=== PATIENT | female | born 1995 | race Caucasian/White ===

== ENCOUNTER 2020-02-03 02:27 | Inpatient (IN) | payer MEDICAID ==
[~2020-02-03] VITALS: Ht 167.6 cm; Wt 80.9 kg
[2020-02-03] VITALS (17 sets, daily range): BP systolic 98–125; BP diastolic 52–79; PULSE 60–100; TEMP 97.6–98.9
--- NOTE | 2020-02-03 02:30 | NUR ---
G3L1 at 40.6 weeks gestation to LDR3 with c/o contractions since 0100. She denies bleeding but c/o some leaking of fluid for the last few days. She reports good movement. Patient changed into gown and wedged to left side in bed. EFMs explained and applied. FHR 120bpm and reactive. Regular CTX per toco, patient breathing through them. VSS. SVE 5/90 with bulgy bag felt. Amniotrace to vagina remains yellow. No fluid noted with exam. Plan of care reviewed with patient and boyfriend.
[2020-02-03 02:58] LABS: BASO % 0.3 % (0.0-2.0); EOS # 0.2 (0.0-0.7); EOS % 1.3 % (0-4.0); GRAN # 8.6 (1.4-6.5); GRAN % 75.9 % (42.2-75.2); HEMATOCRIT 33.8 % (37.0-47.0); HEMOGLOBIN 11.1 g/dl (12.5-16.0); LYMPH # 1.7 (1.2-3.4); MEAN CELL VOLUME 92 fl (80.0-100.0); MEAN CORPUSCULAR HEMOGLOBIN 30 pg (27.0-31.0); MEAN CORPUSCULAR HGB CONC 33 g/dl (33.0-37.0); MONO # 0.8 (0.1-0.6); MONO % 6.8 % (1.7-9.3); PLATELET COUNT 180 K/mm3 (130-400); RED BLOOD COUNT 3.68 M/mm3 (4.10-5.30); REDCELL DISTRIBUTION WIDTH-CV 13.5 % (11.5-14.5)
--- NOTE | 2020-02-03 04:00 | NUR ---
FHT's w early deceleration to 80's with peak of contraction, gradual return to baseline.
--- NOTE | 2020-02-03 04:40 | NUR ---
Charlette FARM BOSS into room for epidural. Pt moved to sit @ adge of bed for epidural placement.EFM tracing maternal pulse.
--- NOTE | 2020-02-03 05:25 | NUR ---
SVE complete. Pt 'feeling pressure'. Dr Yusuf at L&D desk, notified to come into room. Pushing instructions given. 0530 Set up and prepped for delivery [address] infant by Dr Yusuf.
--- NOTE | 2020-02-03 05:46 | NUR ---
Placenta delivers spont and intact. Pitocin bolus started. Perineal inspection reveals no laceration, pericare completed., bed together
[2020-02-03] MEDS ORDERED: CELEXA40 MG PO (06:21)
[2020-02-03] MEDS ORDERED: ZYRTEC 10MG10 MG PO (06:22)
[2020-02-03 07:43] LABS: TRICYCLIC ANTIDEPRESS URINE NEGATIVE
--- NOTE | 2020-02-03 08:02 | NUR ---
COVID-19 swab collected by Shannon Yates RN and sent to lab per protocol.
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
--- NOTE | 2020-02-03 15:05 | NUR ---
Patient requesting to go outside and smoke. RN explains that patient needs to stay on unit, especially with IV site in place. Patient does not want to get INT taken out at this time "in case I need it again later". RN explains that especially with current COVID policies patient needs to remain on unit and FOB needs to restrict leaving to necessary trips only. After discussion, both mother and FOB verbalize understanding.
[2020-02-04 00:15] VITALS: BP 112/63; PULSE 73; TEMP 98.3
[2020-02-04 04:30] VITALS: BP 112/59; PULSE 68; TEMP 98.3
[2020-02-04 08:30] VITALS: BP 103/57; PULSE 74; TEMP 97.8
--- NOTE | 2020-02-04 08:50 | NUR ---
Initial visit; Parents thanked Trial Paralegal for offering congratulations and God's blessings for the of their son. Trial Paralegal thanked family for choosing [facility].
[2020-02-04] MEDS ORDERED: IBU600 MG PO (09:01)
--- NOTE | 2020-02-04 11:30 | NUR ---
1120 PT DC'D FROM UNIT AT THIS TIME WITH FOB AND . DC INSTRUCTIONS GIVEN. IBUPROFEN PERSCRIPTION SENT TO PHARMACY ON FILE. ALL QUESTIONS ANSWERED AT THIS TIME. THIS RN WALKED PATIENT TO VEHICLE AND WITNESSED INFANT BUCKLED INTO VEHICLE FACING BACKWARDS.
== END 2020-02-04 11:20 | disposition home or self-care (01) | DRG 807 ==
LOC: LDRO 02:27 → OB 02:38 → LDR 02:38 → OB 09:18
PROVIDERS: Obstetrics & Gynecology; ADMIT Obstetrics & Gynecology
PROC: 10E0XZZ Delivery of Products of Conception, External Approach (ICD-10-PCS; principal; 2020-02-03)
PROC: 10907ZC Drainage of Amniotic Fluid, Therapeutic from Products of Conception, Via Natural or Artificial Opening (ICD-10-PCS; 2020-02-03)
DX: O48.0 Post-term pregnancy (principal); Z37.0 Single live birth; O77.0 Labor and delivery complicated by meconium in amniotic fluid; Z3A.40 40 weeks gestation of pregnancy
CPT/HCPCS: J2590; J2795; J7120

== ENCOUNTER 2021-01-15 12:40 | Outpatient (CLI) | payer MEDICAID ==
[~2021-01-15 12:40] MED LIST: CELEXA40 MG PO; IBU600 MG PO; ZYRTEC 10MG10 MG PO
--- NOTE | 2021-01-15 13:00 | NUR ---
Pt arrived on unit ambulatory and with complaints of abdominal pain but "not sure if they are contractions" all day. Pt denies any leaking of fluid, vaginal bleeding and reports normal movement. Pt reports no care. Self reports G4L1 with delivery 1 year ago and boy of head trauma at 5 weeks of age. This was unplanned and "too many emotions to process the ". EFM and toco monitors started. Vital signs WNL. Spoke with Dr. Issa and Dr. Casarez. See physician notification for details.
[2021-01-15 14:00] VITALS: BP 116/56; PULSE 96; TEMP 98
[2021-01-15 14:47] LABS: ALBUMIN 3.1 gm/dL (3.5-5.0); BILIRUBIN,TOTAL 0.2 mg/dL (0.0-1.0); CALCIUM 8.3 mg/dL (8.4-10.2); CREATININE, serum 0.45 (0.52-1.25); MEAN CELL VOLUME 92 fl (80.0-100.0); MEAN CORPUSCULAR HGB CONC 33 g/dl (33.0-37.0); MEAN PLATELET VOLUME 10.2 fl (7.4-10.4); PLATELET COUNT 217 K/mm3 (130-400); POTASSIUM 3.7 mmol/L (3.4-5.0); RED BLOOD COUNT 3.13 M/mm3 (4.10-5.30); REDCELL DISTRIBUTION WIDTH-CV 13.3 % (11.5-14.5); TOTAL PROTEIN 6.3 gm/dL (6.4-8.2)
[2021-01-15 14:52] LABS: HEMATOCRIT 28.7 % (37.0-47.0); HEMOGLOBIN 9.4 g/dl (12.5-16.0); MEAN CORPUSCULAR HEMOGLOBIN 30 pg (27.0-31.0)
[2021-01-15 15:00] VITALS: BP 100/59; PULSE 99
[2021-01-15 15:19] LABS: THYROID STIMULATING HORMONE 1.62 uIU/mL (0.465-4.680)
[2021-01-15 15:23] LABS: TRICYCLIC ANTIDEPRESS URINE NEGATIVE
[2021-01-15 17:08] LABS: EOSINOPHIL 4 % (0-4); LYMPHOCYTE 19 % (20.0-51.0); NEUTROPHILS 72 % (42.0-75.2)
[2021-01-15 17:10] LABS: HYPOCHROMIA 1+; PLATELET ESTIMATE NORMAL (NORMAL)
[2021-01-16 07:01] LABS: PT G20210A MUTATION B Negative (Negative)
[2021-01-16 13:11] LABS: LUPUS ANTICOAGULANT PT 12.8 Seconds (())
[2021-01-17 01:30] LABS: BETA-2 GPI IGG AABS <20.0 CU (<=20.0); BETA-2 GPI IGM AABS <20.0 CU (<=20.0)
[2021-01-17 07:38] LABS: TOXOPLASMA AB, IGG <3.0 IU/mL (0.0-7.1); TOXOPLASMA IGG VALUE Negative (Negative); TOXOPLASMA IGM VALUE Negative (Negative)
== END 2021-01-15 15:45 | disposition home or self-care (01) ==
LOC: LDRO 12:40
PROVIDERS: Obstetrics & Gynecology
DX: O26.893 Other specified pregnancy related conditions, third trimester (principal); R10.9 Unspecified abdominal pain; Z3A.00 Weeks of gestation of pregnancy not specified

== ENCOUNTER 2021-02-28 07:38 | Inpatient (IN) | payer MEDICAID ==
[2021-02-28] VITALS (39 sets, daily range): BP systolic 99–143; BP diastolic 56–86; PULSE 57–100; TEMP 97.1–98.6
[~2021-02-28] VITALS: Ht 167.6 cm; Wt 72.7 kg
--- NOTE | 2021-02-28 07:45 | NUR ---
0745-G4L1 Patient of Dr. Casarez ambulatory to LR 4 with complaint of SROM at 0715 clear fluid. Patient reports EDC 03/20/21 and has had little to no care. Admitted to meth use in the last week and history of demise at 5wks while child in previous boyfriends care. Patient reports she is no longer with him but he is FOB of both her son who and this current . Assisted into gown obtained UDS per protocol and placed on EFM. VSS. Amnitest +. SVE /-[address] Yusuf notified. Orders to admit and start Pen G per GBS unknown protocol.
--- NOTE | 2021-02-28 08:15 | NUR ---
0815IV to right hand, blood collected and LR infusing per orders. See EMAR. Patient reports to covid + result 02/19/2021 in ED. Unable to locate + result. Rapid result sent down with positive results found. Placed in isolation for covid per protocol. Assessment complet, consents signed.
[2021-02-28 08:28] LABS: MEAN CELL VOLUME 87 fl (80.0-100.0); MEAN CORPUSCULAR HEMOGLOBIN 29 pg (27.0-31.0); MEAN CORPUSCULAR HGB CONC 33 g/dl (33.0-37.0); MEAN PLATELET VOLUME 11.1 fl (7.4-10.4); PLATELET COUNT 183 K/mm3 (130-400); RED BLOOD COUNT 3.51 M/mm3 (4.10-5.30); REDCELL DISTRIBUTION WIDTH-CV 14.2 % (11.5-14.5)
[2021-02-28 08:36] LABS: HEMATOCRIT 30.5 % (37.0-47.0)
[2021-02-28 08:47] LABS: TRICYCLIC ANTIDEPRESS URINE NEGATIVE
[2021-02-28 09:28] LABS: ALBUMIN 2.8 gm/dL (3.5-5.0); BILIRUBIN,TOTAL 0.3 mg/dL (0.0-1.0); CREATININE, serum 0.7 (0.52-1.25); TOTAL PROTEIN 5.8 gm/dL (6.4-8.2)
--- NOTE | 2021-02-28 09:40 | NUR ---
0940-Patient sitting up on side of bed for epidural placement. Difficulty maintaining continuous tracing of FHR. RN adjusting EFM frequently. 0941-Single shot by PHILL Robb. 0942-Test dose by PHILL Robb patient tolerated well. Updated on patient safety and plan of care repositioned WL.
[2021-02-28 10:04] LABS: HIV 1/2 Antibodies Non-Reactive; HIV-1p24 Antigen Non-Reactive
[2021-02-28 10:12] LABS: EOSINOPHIL 2 % (0-4); LYMPHOCYTE 32 % (20.0-51.0); NEUTROPHILS 61 % (42.0-75.2)
[2021-02-28 10:18] LABS: HYPOCHROMIA 1+; PLATELET ESTIMATE NORMAL (NORMAL)
--- NOTE | 2021-02-28 12:11 | NUR ---
Radhika Giron out of [place] is patients Area Director Of Home Health Sales that she is working with on cutody of daughter and is aware of .
--- NOTE | 2021-02-28 13:55 | NUR ---
1355-Dr. Yusuf on unit reviews FHR monitor, no new orders.
--- NOTE | 2021-02-28 15:05 | NUR ---
1505-Dr. Yusuf on unit revies FHR monitor, no new orders.
[2021-02-28 15:26] LABS: COLLECTION METHOD CATHETER
[2021-02-28 15:33] LABS: MUCOUS Present /lpf; PH 6 (5-8); SQUAMOUS EPITHELIAL 0-2 /hpf; URINE APPEARANCE Clear; URINE BACTERIA None Seen /hpf; URINE BILIRUBIN Negative (NEGATIVE); URINE BLOOD 2+ (NEGATIVE); URINE COLOR Yellow; URINE GLUCOSE Negative (NEGATIVE); URINE KETONE Negative (NEGATIVE); URINE LEUKOCYTE ESTERASE Negative (NEGATIVE); URINE NITRATE Negative (NEGATIVE); URINE PROTEIN(semi-quant) 1+ (NEGATIVE); URINE RBC >50 /hpf; URINE UROBILINOGEN Negative (NEGATIVE)
--- NOTE | 2021-02-28 16:20 | NUR ---
1620-Patient complete and +[address] Yusuf and requested for delivery. 1628-Patient begins pushing with MD at bedside. 1634-Spontaneous delivery of head attended by Dr. Yusuf immediately followed by body. Viable female care attended by XIOMY Portillo. Cord clamped x2 and cut by MD. Apgars 8/9/9. 1637-Spontaneous delivery of intact placenta by MD. Fundal massage firm. Lochia WNL. EBL 100ml. Perineum intact malick care provided updated on plan of care and safety.
[2021-02-28 17:55] LABS: HEPATITIS B SURFACE ANTIGEN Negative (Negative)
[2021-03-01 03:24] VITALS: BP 114/59; PULSE 60; TEMP 98.2
--- NOTE | 2021-03-01 05:52 | NUR ---
PT HAS BEEN SLEEPING SINCE START OF SHIFT. WILL AWAKEN TO ST[facility]ULUS AND FOLLOWS REQUESTS AND ANSWERS QUESTIONS APPROPRIATELY. HAS TO BE ENCOURAGED AND REMINDED TO PERFORM CARES INCLUDING FEEDINGS AND DIAPER CHANGES. PT WILLING TO PERFORM CARES OF BUT ONLY WITH REMINDERS.
[2021-03-01 07:00] VITALS: BP 115/69; PULSE 68; TEMP 98.4
--- NOTE | 2021-03-01 12:00 | NUR ---
DR. BAIG INTO SEE BABY. STATES BABY'S FACE WAS COVERED BY BLANKET FROM MOVING AROUND AND MOM IS IN DEEP SLEEP, PAYING NO ATTENTION TO BABY OR BABY'S NEEDS AT THIS TIME. BABY MOVED INTO THE NURSERY TO BE MONITORED. BABY ALSO TESTED FOR COVID AT THIS TIME AND IS IN ISOLATION
[2021-03-01 12:28] VITALS: BP 114/57; PULSE 66; TEMP 98.6
--- NOTE | 2021-03-01 12:49 | NUR ---
SW informed of patient status being positive for Meth and Amp as well as child recently delivered. SW informed of the following by nurse and confirmed with patient during assessment: Patient states that she lives with her mother Zuleima Krause [phone] in [place] with her 4 y/o child and brother who is 21. Patient provides that she had a baby last year, but the baby . Patient states that she did previously stay with her lelia father Royal Forrest, but since has court order against him (who is also the father of the child that ) Patient states that she did inform him of her labor pains and water breaking before come to the hospital. Patient states that he was "crying" but thinks that his sobbing was fake. Patient states that Radhika West [phone] is her community case manager and states that her community case manager informed her that she would be arriving to the hospital on 03/02/2021 to assess situation. Patient states that her plan up on DC is for her and her baby to return to her moms home. Patient states that she is aware that she tested positive for Meth and Amp. SW informed that patient's mother Charles wanted a call to ask questions. SW called Charles and Charles stated that she would need the following items when taking baby home: car seat, bassinet, formula, and diapers. Charles stated that they live in a tight space. SW stated that information has been noted. Charles had no further questions. SW called Radhika West community case manager for patient. Radhika stated that she will be arriving some time tomorrow to assess situation. SW informed patient that [place] Leader will be assisting. Nurse informed SW that patient has shown no interest in caring for herself or her baby at this time. With no initiation of feeding or care for baby only with reminders from staff. CASE # [id number] Nothing further.
[2021-03-01 16:15] VITALS: BP 108/66; PULSE 80; TEMP 98.2
[2021-03-01 19:20] VITALS: BP 116/66; PULSE 93; TEMP 98.7
--- NOTE | 2021-03-06 16:39 | NUR ---
Bakery Team Member received infant cord blood results which were positive for amphetamines and methamphetamines. SW made CPS report, intake #[id number]. SW uploaded results and attached them to intake.
== END 2021-03-01 21:45 | disposition home or self-care (01) | DRG 805 ==
LOC: LDRO 07:38 → LDR 08:00
PROVIDERS: ADMIT Obstetrics & Gynecology
PROC: 10E0XZZ Delivery of Products of Conception, External Approach (ICD-10-PCS; principal; 2021-02-28)
DX: O98.52 Other viral diseases complicating childbirth (principal); U07.1 COVID-19; Z37.0 Single live birth; O99.324 Drug use complicating childbirth; O69.81X0 Labor and delivery complicated by cord around neck, without compression, not applicable or unspecified; O99.344 Other mental disorders complicating childbirth; F32.9 Major depressive disorder, single episode, unspecified; O99.02 Anemia complicating childbirth; D64.9 Anemia, unspecified; F15.90 Other stimulant use, unspecified, uncomplicated; Z3A.37 37 weeks gestation of pregnancy
CPT/HCPCS: J2540; J2590; J7120

== ENCOUNTER 2021-09-27 19:23 | Day surgery (SDC) | payer MEDICAID ==
[~2021-09-27] VITALS: Ht 167.6 cm; Wt 54.5 kg
[2021-09-27 19:45] LABS: BASO % 0.3 % (0.0-2.0); EOS # 0.1 K/mm3 (0.0-0.7); EOS % 1.1 % (0.0-4.0); GRAN # 8.9 K/mm3 (1.4-6.5); GRAN % 80.6 % (42.2-75.2); HEMATOCRIT 26.4 % (37.0-47.0); HEMOGLOBIN 8.8 g/dl (12.5-16.0); LYMPH # 1.6 K/mm3 (1.2-3.4); LYMPH % 14.4 % (20.0-51.0); MEAN CELL VOLUME 89 fl (80.0-100.0); MEAN CORPUSCULAR HEMOGLOBIN 30 pg (27-31); MEAN CORPUSCULAR HGB CONC 33 g/dl (33.0-37.0); MEAN PLATELET VOLUME 9.4 fl (7.4-10.4); MONO # 0.4 K/mm3 (0.1-0.6); MONO % 3.3 % (1.7-9.3); PLATELET COUNT 225 K/mm3 (130-400); RED BLOOD COUNT 2.98 M/mm3 (4.10-5.30); REDCELL DISTRIBUTION WIDTH-CV 13.8 % (11.5-14.5)
[2021-09-27 20:01] LABS: ALBUMIN 2.7 gm/dL (3.5-5.0); ALKALINE PHOSPHATASE 42 U/L (40-150); ANION GAP 8 mmol/L (7-16); AST,SGOT 7 U/L (5-34); BILIRUBIN,TOTAL 0.4 mg/dL (0.2-1.2); BLOOD UREA NITROGEN 10 mg/dL (7-19); CALCIUM 7.4 mg/dL (8.4-10.2); CARBON DIOXIDE 19 mmol/L (22-29); CHLORIDE 112 mmol/L (98-107); CREATININE, serum 0.64 mg/dL (0.57-1.11); GLUCOSE 97 mg/dL (70-99); SODIUM 139 mmol/L (136-145)
[2021-09-27 20:06] LABS: ALANINE AMINOTRANSFERASE < 6 U/L (0-55)
[2021-09-27 22:55] VITALS: BP 89/33; PULSE 89
[2021-09-27 22:59] LABS: MUCOUS Present (NOT PRESENT); PH 5 (5-8); SQUAMOUS EPITHELIAL 0-2 /hpf (0-10); URINE APPEARANCE Cloudy (CLEAR/HAZY); URINE BACTERIA Moderate /hpf (NONE SEEN); URINE BILIRUBIN Negative (NEGATIVE); URINE BLOOD 1+ (NEGATIVE); URINE COLOR Amber (YELLOW); URINE GLUCOSE Negative (NEGATIVE); URINE KETONE Negative (NEGATIVE); URINE LEUKOCYTE ESTERASE Trace (NEGATIVE); URINE NITRATE Negative (NEGATIVE); URINE PROTEIN(semi-quant) Negative (NEGATIVE)
[2021-09-27 23:10] VITALS: BP 82/52; PULSE 100
[2021-09-27 23:25] VITALS: BP 103/46; PULSE 97; TEMP 98.1
[2021-09-27 23:40] VITALS: BP 101/64; PULSE 98
[2021-09-27 23:55] VITALS: BP 102/62; PULSE 98
[2021-09-28 00:25] VITALS: BP 109/56; PULSE 96; TEMP 97.7
[2021-09-28 00:55] VITALS: BP 115/51; PULSE 98
[2021-09-28 01:38] LABS: COLLECTION METHOD CLEAN CATCH
[2021-09-28 01:55] VITALS: BP 102/62; PULSE 100; TEMP 97.7
[2021-09-28 02:55] VITALS: BP 106/42; PULSE 97; TEMP 97.6
[2021-09-28] MEDS ORDERED: IBU800 M1 PO (04:23)
[2021-09-28] MEDS ORDERED: FERROUS SU325 MG/TAB PO (04:24)
[2021-09-28 05:08] LABS: HIV 1/2 Antibodies Non-Reactive; HIV-1p24 Antigen Non-Reactive
[2021-09-28 06:14] LABS: TRICYCLIC ANTIDEPRESS URINE NEGATIVE
[2021-09-28 07:30] VITALS: BP 97/46; PULSE 87; TEMP 98.5
--- NOTE | 2021-09-28 07:30 | NUR ---
PATIENT SLEEPING. RN ATTEMPTS TO WAKE BUT ONLY OPENS EYES FOR BRIEF MOMENT. FOLLOWS COMMANDS WITH ALLOWING VS TO BE TAKEN AND TAKING PRESCRIBED POTASSIUM PILL.
--- NOTE | 2021-09-28 09:00 | NUR ---
PATIENT CONTINUES TO SLEEP. ONLY OPENS EYES WHEN RN REQUEST PATIENT TO TAKE SCHEDULED COLACE. MENU AND INSTRUCTIONS PROVIDED TO PATIENT ALONG WITH PHONE TO CALL FOR MEAL.
--- NOTE | 2021-09-28 10:17 | NUR ---
Initial visit attempt; Patient resting, Baler Operator left card offering God's blessings and information regarding the availability of spiritual care at our hospital.
--- NOTE | 2021-09-28 10:34 | NUR ---
ornamental iron worker apprentice met with patient and discussed drug treatment. Patient presented after having a miscarraige at home. Patient is positive for meth and amphetamines and states she vapes meth daily. Patient states her 5 year old daughter is in temporary custody with her mother and that her 7 month old daughter is in Foster Care. Patient states that her mother lets her stay at her home during the day and at night she finds friends to stay with or sleeps in her car. Patient stated that she wants drug treatment. Worker presented to patient's room with contact number for [facility], however, patient would not open her eyes. Worker advised that she would return to assist patient with drug treatment phone call when she was awake. Patient verbalized agreement with this plan. Worker filed a CPS report #[id number] as patient continues to be in the home of her minor child and is consuming meth daily. Worker collaborated with patient's nurse, Viki, regarding the above information.
[2021-09-28 11:10] VITALS: BP 96/41; PULSE 92; TEMP 98.4
--- NOTE | 2021-09-28 11:10 | NUR ---
PATIENT CONTINUES TO REST WITH EYES CLOSED. DOES NOT OPEN EYES TO RN WHEN ENTERING ROOM. PATIENT BRIEFLY OPENS EYES WHEN RN REQUEST PATIENT TO WAKE UP. PRESENTED WITH EDUCATION FOLDER FOR STILLBIRTH. STILLBIRTH WORK SHEET ALSO PROVIDED TO PATIENT. PATIENT ENCOURAGED TO ORDER FOOD. REQUEST JADE CRACKERS AND PROVIDED. INT X2 DC'D. PATIENT ONLY AWAKE DURING RN TIME IN ROOM WHEN RN REQUEST HER ATTENTION.
--- NOTE | 2021-09-28 12:30 | NUR ---
PATIENT REMAINS WITH EYE CLOSED. PATIENT DID EAT JADE CRACKERS. RN ASKS IF PATIENT WANTS HELP FILLING OUT STILLBIRTH CERTIFICATE. PATIENT NODS YES. RN ASKS PATIENT QUESTIONS. SHE ANSWERS SOME THEN DOZES OFF. RN ATTEMPTS TO WAKEN PATIENT BUT UNABLE TO WAKEN.
--- NOTE | 2021-09-28 14:21 | NUR ---
DISCHARGE TEACHING COMPLETED. PT EDUCATED ON FOLLOW UP APPOINTMENT AND PRESCRIPTONS. QUESITONS INVITED AND ANSWERED.
--- NOTE | 2021-09-28 14:26 | NUR ---
Training Program Manager met with patient and assisted her in contacting [facility] admissions. Patient spoke to the admissions team and advised they are sending her paperwork to complete before they will make her an appointment. SW left patient with the [facility] Resource Guide and contact information for case management.
[2021-09-28 19:06] LABS: HEPATITIS B SURFACE ANTIGEN Negative (Negative); HEPATITIS C VIRUS ANTIBODY Negative (Negative)
== END 2021-09-28 15:30 | disposition home or self-care (01) ==
LOC: COL.ER 19:23 → SDCO 21:51 → OB 22:55 → SDCO 09-28 15:30
PROVIDERS: Emergency Medicine; Student in an Organized Health Care Education/Training Program
DX: O03.4 Incomplete spontaneous abortion without complication (principal); O36.4XX0 Maternal care for intrauterine death, not applicable or unspecified; N93.9 Abnormal uterine and vaginal bleeding, unspecified; E87.6 Hypokalemia; D64.9 Anemia, unspecified; F19.90 Other psychoactive substance use, unspecified, uncomplicated
CPT/HCPCS: OP; J2210; J2405; J2704; J3010; J3480; J7030

== ENCOUNTER 2021-10-21 16:10 | Emergency (ER) | payer MEDICAID ==
[~2021-10-21] VITALS: Ht 167.6 cm; Wt 61.4 kg
[2021-10-21 16:10] VITALS: TEMP 98.5
[~2021-10-21 16:10] MED LIST changes: +FERROUS SU325 MG/TAB PO; +IBU800 M1 PO
[2021-10-21 16:59] LABS: BASO % 0.5 % (0.0-2.0); EOS # 0.4 K/mm3 (0.0-0.7); EOS % 5.1 % (0.0-4.0); GRAN # 5.3 K/mm3 (1.4-6.5); GRAN % 72.2 % (42.2-75.2); LYMPH # 1.2 K/mm3 (1.2-3.4); LYMPH % 16.6 % (20.0-51.0); MEAN CELL VOLUME 89 fl (80.0-100.0); MEAN CORPUSCULAR HGB CONC 29 g/dl (33.0-37.0); MONO # 0.4 K/mm3 (0.1-0.6); MONO % 4.7 % (1.7-9.3); PLATELET COUNT 398 K/mm3 (130-400); RED BLOOD COUNT 2.88 M/mm3 (4.10-5.30); REDCELL DISTRIBUTION WIDTH-CV 14.9 % (11.5-14.5)
[2021-10-21 17:00] LABS: HEMATOCRIT 25.5 % (37.0-47.0); HEMOGLOBIN 7.3 g/dl (12.5-16.0); MEAN CORPUSCULAR HEMOGLOBIN 25 pg (27-31)
[2021-10-21 17:18] LABS: ALBUMIN 3.1 gm/dL (3.5-5.0); BILIRUBIN,TOTAL 0.2 mg/dL (0.2-1.2); CREATININE, serum 0.68 mg/dL (0.57-1.11); POTASSIUM 4.2 mmol/L (3.5-4.5); TOTAL PROTEIN 6.4 gm/dL (6.2-8.1)
[2021-10-21 18:06] LABS: COLLECTION METHOD CLEAN CATCH
[2021-10-21 18:13] LABS: MUCOUS Present (NOT PRESENT); PH 6 (5-8); URINE APPEARANCE Hazy (CLEAR/HAZY); URINE BACTERIA None Seen /hpf (NONE SEEN); URINE BILIRUBIN Negative (NEGATIVE); URINE BLOOD Negative (NEGATIVE); URINE COLOR Yellow (YELLOW); URINE GLUCOSE Negative (NEGATIVE); URINE KETONE Negative (NEGATIVE); URINE LEUKOCYTE ESTERASE 3+ (NEGATIVE); URINE NITRATE Negative (NEGATIVE); URINE PROTEIN(semi-quant) Negative (NEGATIVE); URINE UROBILINOGEN Negative (NEGATIVE)
[2021-10-21 18:21] LABS: TRICYCLIC ANTIDEPRESS URINE NEGATIVE
[2021-10-21] MEDS ORDERED: CEFTIN500 MG PO (18:25)
[2021-10-21 18:56] VITALS: BP 100/54; PULSE 92
== END 2021-10-21 19:00 | disposition home or self-care (01) ==
LOC: COL.ER 16:10
PROVIDERS: Physician Assistant
DX: N39.0 Urinary tract infection, site not specified (principal); D64.9 Anemia, unspecified; R55 Syncope and collapse; I95.9 Hypotension, unspecified; F17.210 Nicotine dependence, cigarettes, uncomplicated; Z28.310 Unvaccinated for COVID-19; Z79.2 Long term (current) use of antibiotics
CPT/HCPCS: J0696; J2405

== ENCOUNTER 2023-07-03 22:16 | Observation (INO) | payer SELFPAY ==
[~2023-07-03] VITALS: Ht 167.6 cm; Wt 77.3 kg
[~2023-07-03 22:16] MED LIST changes: +CEFTIN500 MG PO
[2023-07-03 23:11] LABS: COLLECTION METHOD CLEAN CATCH
[2023-07-03 23:39] LABS: URINE APPEARANCE Clear (CLEAR/HAZY); URINE COLOR Yellow (YELLOW)
[2023-07-03 23:40] LABS: URINE BLOOD 1+ (NEGATIVE); URINE GLUCOSE TRACE (NEGATIVE); URINE KETONE Negative (NEGATIVE); URINE NITRATE Negative (NEGATIVE); URINE PROTEIN(semi-quant) Negative (NEGATIVE); URINE UROBILINOGEN 0.2 E.U/dL (0.2-1.0)
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
[2023-07-03 23:45] LABS: MUCOUS Present (NOT PRESENT)
[2023-07-03 23:46] LABS: URINE BACTERIA Rare /hpf (NONE SEEN)
[2023-07-03 23:50] LABS: BASO % 0.2 % (0.0-2.0); EOS # 0.2 K/mm3 (0.0-0.7); EOS % 1.7 % (0.0-4.0); GRAN # 7.1 K/mm3 (1.4-6.5); HEMOGLOBIN 11.2 g/dl (12.5-16.0); LYMPH # 1.6 K/mm3 (1.2-3.4); LYMPH % 17.1 % (20.0-51.0); MEAN CELL VOLUME 90 fl (80.0-100.0); MEAN CORPUSCULAR HEMOGLOBIN 30 pg (27-31); MEAN CORPUSCULAR HGB CONC 34 g/dl (33.0-37.0); MEAN PLATELET VOLUME 9.8 fl (7.4-10.4); MONO # 0.4 K/mm3 (0.1-0.6); MONO % 4.5 % (1.7-9.3); PLATELET COUNT 226 K/mm3 (130-400); RED BLOOD COUNT 3.69 M/mm3 (4.10-5.30); REDCELL DISTRIBUTION WIDTH-CV 13.3 % (11.5-14.5)
[2023-07-03 23:51] LABS: HEMATOCRIT 33.1 % (37.0-47.0)
[2023-07-04 00:05] VITALS: BP 111/64; PULSE 84; TEMP 97.9
[2023-07-04 00:08] LABS: TRICYCLIC ANTIDEPRESS URINE NEGATIVE (NEGATIVE)
[2023-07-04 00:10] LABS: ALBUMIN 2.6 gm/dL (3.5-5.0); BILIRUBIN,TOTAL 0.2 mg/dL (0.2-1.2); CALCIUM 8.6 mg/dL (8.4-10.2); CREATININE, serum 0.58 mg/dL (0.57-1.11); POTASSIUM 3.5 mmol/L (3.5-4.5); TOTAL PROTEIN 6.2 gm/dL (6.2-8.1)
[2023-07-04] MEDS ORDERED: ZYRTEC 10MG10 MG PO (00:25)
[2023-07-04] MEDS ORDERED: QUALITY CHOICE1 TA7 (00:26)
[2023-07-04 01:31] LABS: HIV-1p24 Antigen Non-Reactive
[2023-07-04 01:32] LABS: HIV 1/2 Antibodies Non-Reactive
--- NOTE | 2023-07-04 02:35 | NUR ---
0235- PT AND BOYFRIEND SLEEPING SOUNDLY.
--- NOTE | 2023-07-04 08:00 | NUR ---
Vandana from radiology at nurses station after performing ordered OB US. Vandana states that the Pt did not act interested in fetus, reports that she "did not look at the screen once." Reports the support person was looking and asked a few questions.
[2023-07-04 10:10] VITALS: BP 102/58; PULSE 81; TEMP 98.4
--- NOTE | 2023-07-04 13:24 | NUR ---
sheet metal layout worker made CPS report due to mother testing positive for methamphetamines and amphetamines. Intake ID [id number]
--- NOTE | 2023-07-04 13:31 | NUR ---
rodent control worker and Marsha Joseph social service technician, met with patient alone to complete assessment. Patient states she has a 6 year old daughter that she legally adopted to her mother right after her 5 month old son was killed by it's father. Patient states the father of her 5 month old was sent to alf and due to her emotional status and feeling that her daughter would be taken from her, she wanted her mother to take over as legal guardian. Patient states that she does not have insurance and has not had care. Worker contacted financial counselor, Chanda, and requested a medicaid application be completed prior to patient's discharge to help with OB coverage as well as transportation. Patient states she resides with her boyfriend, Erasmo Pepe in [place] and that she works at [employer]. Patient states that she stated she was having sex daily and denies that this is without her consent. Patient states she told her boyfriend that they shouldn't have sex daily as it has caused vaginal bleeding. Worker asked patient if she felt safe with her boyfriend and patient replied "yes". Marsha provided resources for [facility] to include food and mental health resources. Patient states she has had WIC before and will make an appointment. Worker advised that patient was positive for meth and amphetamines. Patient stated she smoked meth last Tuesday and tries to stay away from these people. Worker offered [facility] and treatment as patient is and a priority for treatment placement. Patient does not state she wishes drug treatment at this time. Patient states that she previously took medications for anxiety and depression and stopped due to . Patient stated that she is not in talk therapy at this time. Worker offered assistance with mental health treatment and encouraged this care. Worker collaborated with nursing regarding the above information. Marsha social service technician, filed a CPS report as patient and positive for illegal drugs. Intake #[id number].
[2023-07-04 16:59] LABS: HEPATITIS B SURFACE ANTIGEN Negative (Negative)
== END 2023-07-04 10:50 | disposition home or self-care (01) ==
LOC: LDRO 22:16 → COL.ER 22:16 → EDSTATUS 23:31 → LDRO 23:40 → LDR 23:40 → LDRO 07-04 00:29 → LDR 07-04 00:29 → COL.ER 07-04 00:29 → LDR 07-04 00:30 → LDRO 07-04 00:30 → COL.ER 07-04 00:31 → LDR 07-04 00:31 → EDSTATUS 07-04 04:43 → LDR 07-04 10:50
PROVIDERS: Nurse Practitioner; ADMIT Obstetrics & Gynecology
DX: O46.92 Antepartum hemorrhage, unspecified, second trimester (principal); O09.32 Supervision of pregnancy with insufficient antenatal care, second trimester; O09.292 Supervision of pregnancy with other poor reproductive or obstetric history, second trimester; Z3A.20 20 weeks gestation of pregnancy; Z91.198 Patient's noncompliance with other medical treatment and regimen for other reason; Z96.0 Presence of urogenital implants; Z97.5 Presence of (intrauterine) contraceptive device; Z91.199 Patient's noncompliance with other medical treatment and regimen due to unspecified reason
CPT/HCPCS: OP; G0378